=== PATIENT | male | born 1970 | race Caucasian/White ===

== ENCOUNTER → 2018-07-22 | Outpatient (CLI) | payer OTHER ==
--- NOTE | 2018-07-22 16:41 | MRI ---
EXAM DESCRIPTION: Cervical Spine: MRI. CLINICAL HISTORY: 48 years Male CERVICAL RADICULOPATHY COMPARISON: None. TECHNIQUE: Multiplanar, high-field MRI, multiple sequences, non-contrast Cervical spine. FINDINGS: C2-C3: Minimal narrowing of the left neural foramen by uncinate spur. Normal signal in the disc with disc space preserved. Canal and right foramen are patent. Facet joints are negative. C3-C4: Disc desiccation with minimal disc space decreased. Minimal bulge of the disc to the left of midline. Bilateral uncinate spurs larger on the left. Mild neural foraminal narrowing more on the left than right. Bilateral facet arthrosis. Canal is patent. C4-C5: Normal signal in the disc with disc space preserved. Minimal arthrosis in the left facet. Minimal narrowing of the left neural foramen. Canal and right neuroforamen are patent. C5-C6: Normal signal in the disc with disc space preserved. Anterior disc bulging. No posterior bulging. Bilateral facet joints unremarkable. Canal and neural foramina are patent. C6-C7: Normal signal in the disc with disc space preserved. Canal and neural foramina are patent. Normal signal in the facet joints. C7-T1: Normal signal in the disc and disc space preserved. Arthrosis in the left facet joint and hypertrophy of the left flavum ligament abutting the cord. T1-T2: Normal signal in the disc and disc space preserved. Mild arthrosis in the bilateral facet joints. Bilateral neural foramina are patent. Spinal alignment minimal kyphosis upper spine.. No cord compression or cord edema. Atlantoaxial joint negative.. Base of the cerebellar tonsils is just above the foramen magnum. Paravertebral soft tissues negative. Vertebral bodies are not compressed at any level. Normal marrow signal in the remaining vertebral bodies and the posterior elements. IMPRESSION: 1. Hypertrophy of the facets at different levels as well as uncinate spur hypertrophy at some levels. No significant canal or foraminal narrowing at any level. 2. No disc herniation. Normal signal in the cord at every level. 3. No acute bony abnormality. Electronically signed by: Nik Francisco MD 07/22/2018 4:38 PM CDT
== END ==
LOC: MRI 10:00
PROVIDERS: ATTEND General Practice
DX: M54.12 Radiculopathy, cervical region (principal)